=== PATIENT | male | born 1990 | race Two or more races ===

== ENCOUNTER 2021-06-28 21:52 | Emergency (ER) | payer SELFPAY ==
[~2021-06-28] VITALS: Ht 167.6 cm; Wt 59.0 kg
[2021-06-29 06:17] VITALS: BP 129/77
== END 2021-06-29 06:26 | disposition home or self-care (01) ==
LOC: ER 21:52 → EDBD 21:52 → ER 06-29 06:26
DX: L03.116 Cellulitis of left lower limb (principal); L03.115 Cellulitis of right lower limb; Z59.0 Homelessness